=== PATIENT | male | born 1980 | race Caucasian/White ===

== ENCOUNTER 2016-06-10 17:09 | Emergency (ER) | payer OTHER ==
[~2016-06-10] VITALS: Ht 182.9 cm; Wt 118.2 kg
[2016-06-10 17:26] VITALS: BP 148/92; PULSE 91; RESP 16; O2SAT 98
--- NOTE | 2016-06-10 19:54 | ED.REPORT ---
HPI-Extremity Problem Lower Date of Service Jun 10, 2016 ED Provider: Landon Franco MD The patient is a 35 year old male who presents to the ED due to cuts on his lower right leg four days ago. He received the lacerations when sliding down a ladder. The cuts initially healed and then he picked at the scabs and it is now infected. The wound is now red, warm and swollen. There was no sewage involved in the incident. Nursing Notes Stated Complaint: CUT TO LEG Chief Complaint: Extremity Trauma Nursing Notes Reviewed: Yes Allergies: Coded Allergies: No Known Allergies (Unverified , 06/10/16) Scheduled Cephalexin (Keflex) 500 Mg Capsule 500 MG PO TID Hydrocortisone Valerate (Hydrocortisone Valerate) 15 Gm Cream..g. 15 GM TP BID Sulfamethoxazole/Trimeth 800-160 mg (Bactrim DS) 1 Each Tablet 1 TABLET PO BID Scheduled PRN Naproxen (Naprosyn) 500 Mg Tablet 500 MG PO BID PRN PRN For Pain General Time Seen by MD: 19:53 Chief Complaint Leg injury right Hx Obtained From: Patient Arrived By: Walk-in Onset Occurred: 4 days ago Symptom Duration: Since onset Caused by: Fall from height... (< 3 feet) Location: : Leg right Severity: Current: Mild Recent Healthcare: No recent doctor visit, No recent hospitalization Similar Sx Previous: No Past Medical History Past Medical History none Past Surgical History none Smoking History Unknown if Ever Smoker Social History Other Social History: Good social support, Local resident Ambulatory Status Independent Review of Systems Skin: Reports Swelling (laceration to right lower leg) Complete sys rev & neg: except as marked. Physical Exam Initial Vital Signs Vital Signs (First) Date Time Temp Pulse Resp B/P Pulse Ox O2 Delivery O2 Flow Rate FiO2 06/10/16 17:26 36.3 91 16 148/92 98 Room Air Initial VS: Reviewed General/Constitutional: Well-developed, Well-nourished Head / Eyes: Atraumatic, Normocephalic, PERRL ENT: Mucous membranes moist, Conjunctiva normal, No scleral icterus Neck: Supple, Non-tender, Full range of motion Respiratory: Breath sounds normal, Clear to auscultation, No respiratory distress Cardiovascular: Regular rate & rhythm, Heart sounds normal, Intact distal pulses Abdomen / GI: Soft, Non-tender, No guarding, No rebound, No distention Back: No CVA tenderness Lymphatic: No lymphadenopathy Skin: Warm, Dry, No cyanosis Neurologic: Alert, Oriented, Nonfocal Psychiatric: Mood/affect normal, Behavior normal, Normal thought content Lower Extremity / Pelvis / MS: Full range of motion Right Leg / Calf: Positive: Swelling present... (Mild), Warmth present Trauma / Burn / Environmental: Positive: Laceration linear, deep, draining, abrasion to anterior lower leg Ankle / Foot: Atraumatic, Inspection NL, Full range of motion Re-Eval/Medical Decision Med Decision/Clinical Course 35-year-old presents four days after an initial injury where he abraded the surface of his rod. This is become infected and he presents now with tenderness redness and swelling in the area. Culture obtained. Possibility of MRSA exists. Home with Bactrim, Keflex, and Bactroban ointment to the wounds. Discharged in stable condition. Discharge & Departure Impression: Primary Impression: Cellulitis of right lower leg Additional Impression: Abrasion, leg w/ infection Encounter type: initial encounter Laterality: right Qualified Code: S80.811A - Abrasion, right lower leg, initial encounter Disposition: Home Discharge Condition All VS Reviewed: Yes Condition: Stable Additional Instructions: Keep the wound dry and clean. Applied Bactroban ointment three times daily to prevent crusting and promote drainage. We apply a clean dressing after each application of ointment. Began Bactrim twice daily. Begin Keflex three times daily. Follow-up with your doctor in the office this week. He may follow-up at [facility] residency clinic if needed. Return if he developed fever or worsening despite treatment. Naprosyn twice daily as needed for pain. Referrals: [facility] Res[facility] Yeeibluis miguel Attestation Portion of this note were transcribed by Raya Sullivan. I, Dr. Franco, personally performed the history, physical exam, and medical decision-making: I reviewed and confirmed the accuracy for the information in the transcribed note. Signed by: ellyn Moore, 06/10/16 2200 copies to: [facility] Landon Franco MD Jun 10, 2016 19:53 Raya Sullivan Jun 10, 2016 20:02
[2016-06-10] MEDS ORDERED: Trimethoprim-Sulfa 160 mg-800 mg Tablet PO ONE (20:00)
[2016-06-10] MEDS ORDERED: Mupirocin 2% 22 Gm Ointment TOPICAL ONE (20:00)
[2016-06-10] MEDS ORDERED: CEPH-512 PO (20:11)
[2016-06-10] MEDS ORDERED: HYDR15CR38 TP (20:11)
[2016-06-10] MEDS ORDERED: SULF1TAB7 PO (20:11)
[2016-06-10] MEDS ORDERED: NAPR500T PO (20:11)
[2016-06-10 20:33] VITALS: BP 148/92; PULSE 91; RESP 16; O2SAT 98
== END 2016-06-10 20:33 | disposition home or self-care (01) ==
LOC: SED 17:09
DX: L03.115 Cellulitis of right lower limb (principal); S80.811A Abrasion, right lower leg, initial encounter; W18.49XA Other slipping, tripping and stumbling without falling, initial encounter; Y92.59 Other trade areas as the place of occurrence of the external cause; Y93.89 Activity, other specified; Y99.0 Civilian activity done for income or pay